=== PATIENT | female | born 1995 | race African-American/Black ===

== ENCOUNTER 2016-10-23 01:32 | Observation (INO) | payer MEDICAID | END 2016-10-23 03:08 | disposition home or self-care (01) | DRG 565 | LOC: LDRP 01:32 | PROVIDERS: ADMIT Obstetrics & Gynecology; ATTEND Obstetrics & Gynecology | DX: O47.9 False labor, unspecified (principal); O42.913 Preterm premature rupture of membranes, unspecified as to length of time between rupture and onset of labor, third trimester; Z3A.36 36 weeks gestation of pregnancy | CPT/HCPCS: 59025; G0378 ==